=== PATIENT | female | born 1980 | race Caucasian/White ===

== ENCOUNTER 2018-04-19 14:56 | Emergency (ER) | payer BC ==
[2018-04-19] MEDS ORDERED: Ketorolac Tromethamine 30 MG/ML VIAL ONE (15:19)
[2018-04-19] MEDS ORDERED: diphenhydrAMINE 50 MG/ML VIAL ONE (15:19)
[2018-04-19] MEDS ORDERED: Metoclopramide HCl 10 MG/2 ML VIAL ONE (15:19)
== END 2018-04-19 15:34 | disposition home or self-care (01) ==
LOC: ERS 14:56
DX: G43.909 Migraine, unspecified, not intractable, without status migrainosus (principal); F17.210 Nicotine dependence, cigarettes, uncomplicated; Z79.899 Other long term (current) drug therapy
CPT/HCPCS: 96365; 96375; J1200; J1885; J2765

== ENCOUNTER 2022-07-05 14:35 | Outpatient (CLI) | payer BC | END 2022-07-05 14:36 | disposition home or self-care (01) | LOC: BICMAMMO 14:35 | PROVIDERS: ATTEND Physician Assistant | DX: Z12.31 Encounter for screening mammogram for malignant neoplasm of breast (principal); Z98.82 Breast implant status | CPT/HCPCS: 77063; 77067 ==